=== PATIENT | male | born 1955 | race Caucasian/White ===

== ENCOUNTER 2018-02-07 10:40 | Emergency (ER) | payer BC ==
[2018-02-07] MEDS ORDERED: ACETAMINOPHEN TAB 500 MG TAB PO STA (10:59)
[2018-02-07] MEDS ORDERED: SODIUM CHLORIDE 0.9% 1,000 ML IV ONE (10:59)
--- NOTE | 2018-02-07 11:05 | ED ---
General Adult HPI - General Chief complaint: Upper Respiratory Infection Stated complaint: fever x 4 days, up to 104 Time Seen by Provider: 02/07/18 10:50 Source: patient Mode of arrival: wheelchair Limitations: no limitations - History of Present Illness Initial comments: This is a 62-year-old male with a history of chronic headaches who presents emergency department for fevers, chills, upper respiratory symptoms, cough and diarrhea. The patient states his symptoms have been going on for the last 4 days or so. He states that he has been taking Motrin at home without much relief. He states that he has generalized body aches as well and feels like he "got hit by a truck". He denies any urinary symptoms. No nausea or vomiting. No abdominal pain. He states that he decided to come in to the emergency department this morning because he was having persistent symptoms and his fever was up to 104 at home. Denies any sick contacts. Did not get a flu shot this year. No other complaints. - Related Data Home Medications Medication Instructions Recorded Confirmed oxyCODONE-APAP 10-325MG [Percocet 1 tab PO BID PRN 02/07/18 02/07/18 10-325 mg] Allergies Allergy/AdvReac Type Severity Reaction Status Date / Time No Known Allergies Allergy Verified 02/07/18 12:21 Review of Systems ROS Statement: Those systems with pertinent positive or pertinent negative responses have been documented in the HPI. ROS Other: All systems not noted in ROS Statement are negative. Past Medical History Past Medical History: GERD/Reflux History of Any Multi-Drug Resistant Organisms: None Reported Past Surgical History: Cholecystectomy, Hernia Repair Past Psychological History: No Psychological Hx Reported Smoking Status: Never smoker Past Alcohol Use History: None Reported Past Drug Use History: None Reported General Exam - General Exam Comments Initial Comments: Constitutional: Awake alert Appears comfortable Head: Normocephalic atraumatic Eyes: no conjunctival injection No scleral icterus EOMI ENT: TMs clear bilaterally, no oral pharyngeal erythema or edema Neck: No JVD Supple Heart: Regular rate rhythm normal S1-S2 no murmurs Lungs: Clear to auscultation bilaterally No wheezing No rales Abdomen: Soft nondistended nontender Extremities: Non edematous DP pulses intact Radial pulses intact Neuro: A&Ox3 No focal neurologic deficits Psych: Appropriate mood and affect Limitations: no limitations Course Vital Signs 02/07/18 02/07/18 10:45 11:57 Temperature 101.0 F H 100.1 F H Pulse Rate 105 H 94 Respiratory 18 17 Rate Blood Pressure 109/62 121/72 O2 Sat by Pulse 98 97 Oximetry Medical Decision Making - Medical Decision Making This is a 62-year-old male who came in for generalized body aches, cough, fever , diarrhea. He was found to have influenza. The rest his blood work is unremarkable. Chest x-ray negative. The patient's outside the time window to start Tamiflu. Instructed on supportive care at home. Needs to follow-up with his primary doctor. Return for any worsening cough, shortness of breath, or any other acute complaints. - Lab Data Result diagrams: 02/07/18 11:15 02/07/18 11:15 Lab Results 02/07/18 02/07/18 02/07/18 Range/Units 11:12 11:15 11:15 WBC 4.9 (3.8-10.6) k/uL RBC 4.52 (4.30-5.90) m/uL Hgb 14.4 (13.0-17.5) gm/dL Hct 40.0 (39.0-53.0) % MCV 88.5 (80.0-100.0) fL MCH 32.0 (25.0-35.0) pg MCHC 36.1 (31.0-37.0) g/dL RDW 12.6 (11.5-15.5) % Plt Count 131 L (150-450) k/uL Neutrophils % (Manual) 83 % Band Neutrophils % 3 % Lymphocytes % (Manual) 8 % Monocytes % (Manual) 7 % Neutrophils # (Manual) 4.20 (1.3-7.7) k/uL Lymphocytes # (Manual) 0.39 L (1.0-4.8) k/uL Monocytes # (Manual) 0.34 (0-1.0) k/uL Nucleated RBCs 0 (0-0) /100 WBC Polychromasia Present Sodium 143 (137-145) mmol/L Potassium 3.6 (3.5-5.1) mmol/L Chloride 100 (98-107) mmol/L Carbon Dioxide 28 (22-30) mmol/L Anion Gap 15 mmol/L BUN 25 H (9-20) mg/dL Creatinine 1.00 (0.66-1.25) mg/dL Est GFR (CKD-EPI)AfAm >90 (>60 ml/min/1.73 sqM) Est GFR (CKD-EPI)NonAf 80 (>60 ml/min/1.73 sqM) Glucose 133 H (74-99) mg/dL Plasma Lactic Acid Rodríguez (0.7-2.0) mmol/L Calcium 8.9 (8.4-10.2) mg/dL Total Bilirubin 0.5 (0.2-1.3) mg/dL AST 62 H (17-59) U/L ALT 64 (21-72) U/L Alkaline Phosphatase 90 (38-126) U/L Total Protein 6.5 (6.3-8.2) g/dL Albumin 4.0 (3.5-5.0) g/dL Influenza Type A RNA Not Detected (Not Detectd) Influenza Type B (PCR) Detected H (Not Detectd) 02/07/18 Range/Units 11:15 WBC (3.8-10.6) k/uL RBC (4.30-5.90) m/uL Hgb (13.0-17.5) gm/dL Hct (39.0-53.0) % MCV (80.0-100.0) fL MCH (25.0-35.0) pg MCHC (31.0-37.0) g/dL RDW (11.5-15.5) % Plt Count (150-450) k/uL Neutrophils % (Manual) % Band Neutrophils % % Lymphocytes % (Manual) % Monocytes % (Manual) % Neutrophils # (Manual) (1.3-7.7) k/uL Lymphocytes # (Manual) (1.0-4.8) k/uL Monocytes # (Manual) (0-1.0) k/uL Nucleated RBCs (0-0) /100 WBC Polychromasia Sodium (137-145) mmol/L Potassium (3.5-5.1) mmol/L Chloride (98-107) mmol/L Carbon Dioxide (22-30) mmol/L Anion Gap mmol/L BUN (9-20) mg/dL Creatinine (0.66-1.25) mg/dL Est GFR (CKD-EPI)AfAm (>60 ml/min/1.73 sqM) Est GFR (CKD-EPI)NonAf (>60 ml/min/1.73 sqM) Glucose (74-99) mg/dL Plasma Lactic Acid Rodríguez 1.6 (0.7-2.0) mmol/L Calcium (8.4-10.2) mg/dL Total Bilirubin (0.2-1.3) mg/dL AST (17-59) U/L ALT (21-72) U/L Alkaline Phosphatase (38-126) U/L Total Protein (6.3-8.2) g/dL Albumin (3.5-5.0) g/dL Influenza Type A RNA (Not Detectd) Influenza Type B (PCR) (Not Detectd) Disposition Clinical Impression: Influenza Disposition: HOME SELF-CARE Condition: Stable Instructions: Influenza (ED) Referrals: Emir Eagle MD [Primary Care Provider] - 1-2 days
[2018-02-07 11:36] LABS: HGB 14.4 gm/dL (13.0-17.5); MCHC 36.1 g/dL (31.0-37.0); MCV 88.5 fL (80.0-100.0); Mean Platelet Volume 7.5; Platelet Count 131 k/uL (150-450); RBC 4.52 m/uL (4.30-5.90); RDW 12.6 % (11.5-15.5); WBC 4.9 k/uL (3.8-10.6)
[2018-02-07 11:38] LABS: ALT 64 U/L (21-72); AST 62 U/L (17-59); Alkaline Phosphatase 90 U/L (38-126); Anion Gap 15 mmol/L; Blood Urea Nitrogen 25 mg/dL (9-20); Calcium 8.9 mg/dL (8.4-10.2); Carbon Dioxide 28 mmol/L (22-30); Chloride 100 mmol/L (98-107); Glucose 133 mg/dL (74-99); Potassium 3.6 mmol/L (3.5-5.1); Sodium 143 mmol/L (137-145); Total Bilirubin 0.5 mg/dL (0.2-1.3); Total Protein 6.5 g/dL (6.3-8.2)
[2018-02-07 11:58] LABS: Band Neutrophils % 3 %; Lymphocytes # (M) 0.39 k/uL (1.0-4.8); Monocytes # (M) 0.34 k/uL (0-1.0); Neutrophils % (M) 83 %; Nucleated Red Blood Cells 0 /100 WBC (0-0); Polychromasia Present; Total Cells Counted 200
--- NOTE | 2018-02-07 12:11 | XR ---
EXAMINATION TYPE: XR chest 2V DATE OF EXAM: 02/07/2018 HISTORY: Pain. REFERENCE: NONE. FINDINGS: The lungs are clear. Pleural space are clear. The heart is not enlarged. IMPRESSION: NO ACTIVE INTRATHORACIC DISEASE.
[2018-02-07 13:08] VITALS: BP 111/59; PULSE 88; RESP 16; TEMP 99.2
== END 2018-02-07 13:09 | disposition home or self-care (01) ==
LOC: EC 10:40
DX: J11.1 Influenza due to unidentified influenza virus with other respiratory manifestations (principal)
CPT/HCPCS: 36415; 71046; 80053; 83605; 85025; 87040; 87077; 87186; 87502; 96360; 96361; 99283

== ENCOUNTER 2021-03-30 09:35 | Emergency (ER) | payer MEDICARE ==
[2021-03-30 09:42] VITALS: BP 138/88; PULSE 83; RESP 18; TEMP 97.8
--- NOTE | 2021-03-30 10:25 | XR ---
EXAMINATION TYPE: XR wrist complete LT DATE OF EXAM: 03/30/2021 CLINICAL HISTORY: pain TECHNIQUE: Frontal, lateral and oblique images of the left wrist are obtained. COMPARISON: None. FINDINGS: There is no acute fracture/dislocation evident. The joint spaces appear within normal blevins its. The overlying soft tissue appears unremarkable. IMPRESSION: There is no acute fracture or dislocation seen. ICD 10 NO FRACTURE, INITIAL EVALUATION
[2021-03-30] MEDS ORDERED: KETOROLAC 15 MG/ML 1 ML VIAL IM STA (10:29)
--- NOTE | 2021-03-30 10:32 | ED ---
Upper Extremity HPI - General Chief Complaint: Extremity Injury, Upper Stated Complaint: L Wrist Injury Time Seen by Provider: 03/30/21 09:51 Source: patient Mode of arrival: ambulatory Limitations: no limitations - History of Present Illness Initial Comments: 65-year-old male presenting to the ER today for chief complaint of left wrist pain. Patient states when he was using a drill, it missed and caused his wrist to be fored backwards. this occurred friday and has been painful since. denies fevers. denies inability to flex and extend denies swellign of digits. pt states it appears slightly swollen at wrist. patient staets it hurts most with pronation and supination along the ulnar spect. pt denies breaks in skin/warmth. pt appears well nontoxic in no acute distress on arrival. - Related Data Home Medications Medication Instructions Recorded Confirmed oxyCODONE-APAP 10-325MG [Percocet 1 tab PO BID PRN 02/07/18 02/07/18 10-325 mg] Previous Rx's Medication Instructions Recorded Ibuprofen 600 mg PO Q8H PRN 7 Days #21 tab 03/30/21 Allergies Allergy/AdvReac Type Severity Reaction Status Date / Time No Known Allergies Allergy Verified 03/30/21 09:41 Review of Systems ROS Statement: Those systems with pertinent positive or pertinent negative responses have been documented in the HPI. ROS Other: All systems not noted in ROS Statement are negative. Past Medical History Past Medical History: GERD/Reflux History of Any Multi-Drug Resistant Organisms: None Reported Past Surgical History: Cholecystectomy, Hernia Repair Past Psychological History: No Psychological Hx Reported Smoking Status: Never smoker Past Alcohol Use History: None Reported Past Drug Use History: None Reported General Exam - General Exam Comments Initial Comments: General: The patient is awake and alert, in no distress, and does not appear acutely ill. Eye: Pupils are equal, round and reactive to light, extra-ocular movements are intact. No nystagmus. There is normal conjunctiva bilaterally. No signs of icterus. Musculoskeletal: Mild swelling and pain over the ulnar aspect of the left wrist. flexion and extension wtihout difficulty but pain with pronation and supinatin. Normal ROM, no tenderness of the digits of hte left hand. Strength 5/5. Sensation intact. Radial pulses equal bilaterally 2+. Neurological: A&O x 3. CN II-XII intact grossly, There are no obvious motor or sensory deficits. Coordination appears grossly intact. Speech is normal. Skin: Skin is warm and dry and no rashes or lesions are noted. Psychiatric: Cooperative, appropriate mood & affect, normal judgment. Limitations: no limitations Course Vital Signs 03/30/21 09:38 Temperature 97.8 F Pulse Rate 83 Respiratory 18 Rate Blood Pressure 138/88 O2 Sat by Pulse 100 Oximetry Medical Decision Making - Medical Decision Making Overall mild swelling on exam, pain with pronation and supination, touching over ulnar aspect of wrist (dorsal aspect). pt XR (-). feel this is tendonitis. no evidence of flexor tenosynovitis. pt will be discharged with NSAIDs, rest ice compression instruction. pt agreeable to care plan and return if symptoms are worsening or not improving in the next 2-3 days. pt discharged appearing well. Disposition Clinical Impression: Left wrist pain, Tendonitis Disposition: HOME SELF-CARE Condition: Good Instructions (If sedation given, give patient instructions): Tendinitis (ED) Additional Instructions: Please use medication as discussed. Please follow-up with family doctor in the next 2 days.. Please return to emergency room if the symptoms increase or worsen or for any other concerns. Prescriptions: Ibuprofen 600 mg PO Q8H PRN 7 Days #21 tab PRN Reason: Pain Is patient prescribed a controlled substance at d/c from ED?: No Referrals: Emir Eagle MD [Primary Care Provider] - 1-2 days Time of Disposition: 10:32
== END 2021-03-30 11:00 | disposition home or self-care (01) ==
LOC: EC 09:35
DX: M25.532 Pain in left wrist (principal); M77.9 Enthesopathy, unspecified; M79.89 Other specified soft tissue disorders; K21.9 Gastro-esophageal reflux disease without esophagitis
CPT/HCPCS: 73110; 99283; 96372; J1885

== ENCOUNTER 2021-08-10 07:39 | Emergency (ER) | payer MEDICARE ==
[2021-08-10 07:45] VITALS: BP 145/82; PULSE 67; RESP 18; TEMP 97.9
--- NOTE | 2021-08-10 07:58 | ED ---
General Adult HPI - General Chief complaint: Extremity Injury, Upper Stated complaint: hand injury Time Seen by Provider: 08/10/21 07:45 Source: patient, RN notes reviewed, old records reviewed Mode of arrival: ambulatory Limitations: no limitations - History of Present Illness Initial comments: This is a 66-year-old male who presents emergency Department complaining of left hand pain. Patient states he fell while going up the steps and his hand hit the step. Now his fifth finger is pointing a little bit lateral to the other fingers. Patient does state he has some tenderness at the distal aspect of the fifth fourth metacarpal. Patient denies hitting his head or neck. Patient denies any chest or back pain. Patient has any other injury from the fall. Patient is not on any blood thinners. - Related Data Home Medications Medication Instructions Recorded Confirmed oxyCODONE-APAP 10-325MG [Percocet 1 tab PO BID PRN 02/07/18 02/07/18 10-325 mg] Previous Rx's Medication Instructions Recorded Ibuprofen 600 mg PO Q8H PRN 7 Days #21 tab 03/30/21 Allergies Allergy/AdvReac Type Severity Reaction Status Date / Time No Known Allergies Allergy Verified 08/10/21 07:41 Review of Systems ROS Statement: Those systems with pertinent positive or pertinent negative responses have been documented in the HPI. ROS Other: All systems not noted in ROS Statement are negative. Past Medical History Past Medical History: GERD/Reflux, Hypertension Additional Past Medical History / Comment(s): headaches History of Any Multi-Drug Resistant Organisms: None Reported Past Surgical History: Cholecystectomy, Hernia Repair Past Psychological History: No Psychological Hx Reported Smoking Status: Never smoker Past Alcohol Use History: None Reported Past Drug Use History: None Reported General Exam - General Exam Comments Initial Comments: GENERAL Patient is well-developed and well-nourished. Patient is in mild distress. EYES Patient's pupils are equal and round. Extraocular motion is intact SKIN Unremarkable NEURO The patient is alert and oriented 3 PYSCH Patient has normal interpersonal interactions. MUSCULOSKELETAL There is no swelling over the medial dorsal aspect of his hand. Patient has some tenderness at the distal aspect of the fourth metacarpal. And the patient's fifth finger is abducted from the fourth finger and he states it's difficult to get it to line up straight. Limitations: no limitations Course Vital Signs 08/10/21 07:42 Temperature 97.9 F Pulse Rate 67 Respiratory 18 Rate Blood Pressure 145/82 O2 Sat by Pulse 100 Oximetry Procedures - Orthopedic Splinting/Casting Injury #1 Side: left Upper Extremity Injury Location: short arm Upper Extremity Immobilizer: ulnar gutter Medical Decision Making - Medical Decision Making X-ray of the hand shows a fifth metacarpal fracture on the left. The styloid fracture is old. Disposition Clinical Impression: Fracture of fifth metacarpal bone Disposition: HOME SELF-CARE Condition: Good Instructions (If sedation given, give patient instructions): Hand Fracture (ED) Is patient prescribed a controlled substance at d/c from ED?: No Referrals: Tomas Winchester, BRIGIDA [PHYSICIAN LOCK ASSEMBLER] - 1-2 days Time of Disposition: 08:28
--- NOTE | 2021-08-10 08:15 | XR ---
EXAMINATION TYPE: XR hand complete LT DATE OF EXAM: 08/10/2021 COMPARISON: 03/30/2021 HISTORY: Trauma, fall, pain TECHNIQUE: 3 view left hand FINDINGS: There is a long spiral fracture through the diaphysis of the fifth metacarpal. Overlying so ft tissue swelling is present. Alignment and positioning appears near anatomic. An additional avulsion which is nondisplaced from the ulnar styloid is likely present. IMPRESSION: 1. Spiral fracture diaphysis with metacarpal. 2. Suspected avulsion of the ulnar styloid. 3. Diffuse soft tissue swelling
== END 2021-08-10 08:39 | disposition home or self-care (01) ==
LOC: EC 07:39
DX: S62.307A Unspecified fracture of fifth metacarpal bone, left hand, initial encounter for closed fracture (principal); W22.8XXA Striking against or struck by other objects, initial encounter; I10 Essential (primary) hypertension; K21.9 Gastro-esophageal reflux disease without esophagitis; Z90.49 Acquired absence of other specified parts of digestive tract
CPT/HCPCS: 29125; 99283

== ENCOUNTER → 2022-08-30 | Outpatient (CLI) | payer MEDICARE ==
[2022-08-30 22:33] LABS: Basophils # (A) 0.02 X 10*3/uL (0.00-0.10); Basophils % (A) 0.4 %; Eosinophils # (A) 0.09 X 10*3/uL (0.04-0.35); Eosinophils % (A) 1.6 %; HCT 39.2 % (39.6-50.0); HGB 13.8 g/dL (13.0-17.0); Immature Grans, Automated 0.4 %; Lymphocytes # (A) 1.22 X 10*3/uL (0.90-5.00); Lymphocytes % (A) 21.7 %; MCH 32.5 pg (27.0-32.0); MCHC 35.2 g/dL (32.0-37.0); MCV 92.2 fL (80.0-97.0); Mean Platelet Volume 11.4 fL (9.5-12.2); Monocytes # (A) 0.42 X 10*3/uL (0.20-1.00); Monocytes % (A) 7.5 %; NRBC Per 100 WBC 0 /100 WBCS (0.0-0.0); Neutrophils # (A) 3.84 X 10*3/uL (1.80-7.70); Neutrophils % (A) 68.4 %; Platelet Count 191 X 10*3/uL (140-440); RBC 4.25 X 10*6/uL (4.40-5.60); RDW 12.2 % (11.5-14.5); WBC 5.61 X 10*3/uL (4.50-10.00)
[2022-08-31 00:52] LABS: African American GFR (CKD) 80.4 (60.0-200.0); Albumin 4.6 g/dL (3.8-4.9); Albumin/Globulin Ratio 2.52 (1.60-3.17); Anion Gap 8.4 mmol/L (10.00-18.00); BUN/Creat Ratio 22.57 Ratio (12.00-20.00); Blood Urea Nitrogen 24.6 mg/dL (9.0-27.0); Calcium 9.1 mg/dL (8.7-10.3); Carbon Dioxide 27.3 mmol/L (20.0-27.5); Globulin 1.8 g/dL (1.6-3.3); Non-African American GFR(CKD) 69.4 (60.0-200.0); Potassium 4.4 mmol/L (3.5-5.5); Total Bilirubin 0.5 mg/dL (0.30-1.20); Total Protein 6.4 g/dL (6.2-8.2)
== END | disposition home or self-care (01) ==
LOC: LABWHC1 16:35
PROVIDERS: ATTEND Family Medicine
DX: E83.9 Disorder of mineral metabolism, unspecified (principal); E88.9 Metabolic disorder, unspecified; D89.89 Other specified disorders involving the immune mechanism, not elsewhere classified; D89.9 Disorder involving the immune mechanism, unspecified; B99.9 Unspecified infectious disease; K90.9 Intestinal malabsorption, unspecified; E72.11 Homocystinuria; E34.9 Endocrine disorder, unspecified; R53.83 Other fatigue
CPT/HCPCS: 36415; 80053; 82306; 82607; 82746; 83090; 85025; 86060; 86215